=== PATIENT | male | born 1985 | race Two or more races ===

== ENCOUNTER 2021-11-06 21:29 | Emergency (ER) | payer OTHER, SELFPAY ==
[2021-11-06 21:56] VITALS: BP 137/83; PULSE 65; RESP 16; TEMP 36.7; O2SAT 98; BMI 26.5
[2021-11-07 02:32] VITALS: BP 151/92; PULSE 81; RESP 18; TEMP 36.8; O2SAT 97
== END 2021-11-07 02:58 | disposition left against medical advice (07) ==
PROVIDERS: Emergency Provider Emergency Medicine
DX: R42 Dizziness and giddiness (principal)
CPT/HCPCS: 99282; 99283

== ENCOUNTER 2022-02-08 22:10 | Emergency (ER) | payer OTHER, SELFPAY ==
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
[2022-02-08 22:15] VITALS: BP 115/79; PULSE 80; RESP 17; TEMP 36.2; O2SAT 98; BMI 27.1
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
[2022-02-08] MEDS: Ibuprofen 600 MG TABLET PO (23:45)
== END 2022-02-08 23:49 | disposition home or self-care (01) ==
PROVIDERS: Emergency Provider Internal Medicine
DX: S20.213A Contusion of bilateral front wall of thorax, initial encounter (principal); V43.52XA Car driver injured in collision with other type car in traffic accident, initial encounter; Y93.9 Activity, unspecified; Y92.410 Unspecified street and highway as the place of occurrence of the external cause; Y99.9 Unspecified external cause status
CPT/HCPCS: 71111; 99283; 99284

== ENCOUNTER 2023-01-10 18:50 | Emergency (ER) | payer OTHER, SELFPAY ==
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
[2023-01-10 20:26] VITALS: BP 118/81; PULSE 74; RESP 18; TEMP 36.6; O2SAT 100; BMI 26.8
--- NOTE | 2023-01-10 20:28 | ED_ITS ---
HPI - Chest Pain General Chief Complaint: Back Pain/Injury <SCOTT Saucedo - Last Filed: 01/10/23 20:32> Stated Complaint: L body pain/ numbness , sob- work inj <SCOTT Saucedo - Last Filed: 01/10/23 20:32> Time Seen by Provider: 01/11/23 00:34 <SCOTT Saucedo - Last Filed: 01/10/23 20:32> Source: patient <Alex Farrell MD - Last Filed: 01/11/23 01:01> Mode of arrival: ambulatory <Alex Farrell MD - Last Filed: 01/11/23 01:01> Limitations: no limitations <Alex Farrell MD - Last Filed: 01/11/23 01:01> History of Present Illness HPI narrative: 37-year-old male presents with left-sided chest pain. Patient fell a few days ago while caring furniture up a 4th floor walk-up. He did not have any additional injuries. Now he is complaining of left-sided chest wall pain. This has been going on for 3-4 days. The pain is moderate to severe. Worse with particular movements. The pain does not radiate. It can be associated with shortness of breath. It improves with rest. Patient denies any additional injuries. <Alex Farrell MD - Last Filed: 01/11/23 01:01> Related Data Home Medications: Previous Rx's Medication Instructions Recorded ibuprofen 600 mg tablet 600 mg PO Q6H PRN pain #20 tabs 02/08/22 meloxicam 15 mg tablet 15 mg PO DAILY #14 tabs 01/11/23 <SCOTT Saucedo - Last Filed: 01/10/23 20:32> Allergies/Adverse Reactions: Allergies Allergy/AdvReac Type Severity Reaction Status Date / Time No Known Allergies Allergy Verified 01/10/23 20:31 <SCOTT Saucedo - Last Filed: 01/10/23 20:32> [facility] Past Medical History Medical History: Medical History No known health problems <SCOTT Saucedo - Last Filed: 01/10/23 20:32> Social History Social History: Social History Advance Directives: No Advance Directives Information Provided: Yes <SCOTT Saucedo - Last Filed: 01/10/23 20:32> Physical Exam Vital Signs: Vital Signs: Last Vital Signs Temp 97.9 F 01/10/23 20:26 Pulse 74 01/10/23 20:26 Resp 18 01/10/23 20:26 BP 118/81 01/10/23 20:26 Pulse Ox 100 01/10/23 20:26 O2 Del Method Room Air 01/10/23 20:26 BMI result Body Mass Index 26.8 <SCOTT Saucedo - Last Filed: 01/10/23 20:32> Vital Signs: Last Vital Signs Temp 97.9 F 01/10/23 20:26 Pulse 74 01/10/23 20:26 Resp 18 01/10/23 20:26 BP 118/81 01/10/23 20:26 Pulse Ox 100 01/10/23 20:26 O2 Del Method Room Air 01/10/23 20:26 BMI result Body Mass Index 26.8 <Alex Farrell MD - Last Filed: 01/11/23 01:01> GEN: Well developed, no acute distress, alert, oriented HEENT: Normocephalic, atraumatic, normal external ears, nose appears normal, no oropharyngeal edema or exudates Eyes: Normal to appearance Neck: Supple, no lymphadenopathy Respiratory: Talks in complete sentences, no respiratory distress, clear to auscultation bilaterally Cardiovascular: Regular rate and rhythm, no murmurs rubs or gallops Abdomen: Soft, nontender, nondistended, no guarding, no rebound Back: No CVA tenderness Extremities: No clubbing cyanosis or edema Neurologic: No focal neurologic deficits, cranial nerves 2-12 intact, strength is 5/5 bilaterally, gait normal Skin: No rash Chest: Point tenderness on the left lateral anterior chest to palpation, no deformities <Alex Farrell MD - Last Filed: 01/11/23 01:01> Course Course Course Narrative: [place]--37yo M with no sig PMHX c/o L rib pain s/p dresser falling on him today. States was carrying dresser up the stairs with friends & felling backwards and dresser hit him on the left side. Reports pain worse with movement and breathing. Denies head trauma or LOC. Mild left anterior lateral rib tenderness noted. No flail chest, ecchymosis edema abdomen soft nontender Rib x-rays ordered <SCOTT Saucedo - Last Filed: 01/10/23 20:32> Reevaluation(s) Reevaluation #1: Chest x-ray does not reveal any acute cardiopulmonary disease. No definite fracture. Patient will be treated for pain and follow up as needed. <Alex Farrell MD - Last Filed: 01/11/23 01:01> Time: 01:00 <Alex Farrell MD - Last Filed: 01/11/23 01:01> Medical Decision Making Medical Decision Making MDM Narrative: 37-year-old male presents with left-sided chest wall pain. Examination was consistent with musculoskeletal pain following an injury or fall. Lungs are clear to auscultation bilaterally. X-ray revealed no acute cardiopulmonary disease. Patient most likely has rib contusion <Alex Farrell MD - Last Filed: 01/11/23 01:01> Differential Diagnosis Differential Diagnoses: The differential diagnosis associated with the presentation includes (Fracture, contusion, pulmonary contusion, chest wall pain) <Alex Farrell MD - Last Filed: 01/11/23 01:01> Rib contusion <Alex aFrrell MD - Last Filed: 01/11/23 01:01> Independent Interpretation I performed an independent interpretation of an: Plain X-Ray (No acute cardiopulmonary disease) <Alex Farrell MD - Last Filed: 01/11/23 01:01> Radiology Impression Discussion of test interpretation with radiology: I have reviewed the radiologist's reading. ( XR/XR ribs LT min 3V w CXR1V IMPRESSION: Clear lungs. No focal rib abnormality identified. Dictated By:Alfredo Watson MDSigned By:<Electronically signed by Alfredo Watson MD in [place]>01/10/232104 DD/ 45TD/TT: Case Repairer: RON) <Alex Farrell MD - Last Filed: 01/11/23 01:01> Tests considered The following testing was considered but not selected: CT chest <Alex Farrell MD - Last Filed: 01/11/23 01:01> Prescription Management I considered prescription management with: Pain Medication <Alex Farrell MD - Last Filed: 01/11/23 01:01> Discharge Plan Discharge Clinical Impression: Acute chest wall pain <SCOTT Saucedo - Last Filed: 01/10/23 20:32> Patient Disposition: Home, Self-Care <SCOTT Saucedo - Last Filed: 01/10/23 20:32> Instructions: Chest Wall Pain (ED) <SCOTT Saucedo - Last Filed: 01/10/23 20:32> Additional Instructions: For Pain: Meloxicam daily for pain for additional pain relief tylenol 1000 mg every 6 hours as needed <SCOTT Saucedo - Last Filed: 01/10/23 20:32> Prescriptions: New meloxicam 15 mg tablet 15 mg PO DAILY Qty: 14 0RF No Action ibuprofen 600 mg tablet 600 mg PO Q6H PRN (Reason: pain) Qty: 20 0RF <SCOTT Saucedo - Last Filed: 01/10/23 20:32> Referrals: Physician,Unknown J [Primary Care Provider] - <SCOTT Saucedo - Last Filed: 01/10/23 20:32>
[2023-01-11 01:03] VITALS: BP 126/87; PULSE 61; RESP 12; TEMP 36.7; O2SAT 98
[2023-01-11] MEDS: Acetaminophen 325 MG TABLET 975 MG PO (01:04)
[2023-01-11] MEDS: Ibuprofen 800 MG TABLET PO (01:04)
--- NOTE | 2023-01-11 01:08 | PC.NURSE ---
Pt aox4 resting at the bedside. Discharge instructions reviewed with pt. Pt verbalizes understanding.
== END 2023-01-11 01:09 | disposition home or self-care (01) ==
PROVIDERS: Emergency Provider Emergency Medicine
DX: M94.0 Chondrocostal junction syndrome [Tietze] (principal); R07.89 Other chest pain; M54.50 Low back pain, unspecified
CPT/HCPCS: 71101; 99283; 99284

== ENCOUNTER 2023-09-26 21:18 | Emergency (ER) | payer OTHER, SELFPAY ==
--- NOTE | 2023-09-26 | ECG_ITS ---
Test Reason : CHEST PAIN Blood Pressure : / mmHG Vent. Rate : 092 BPM Atrial Rate : 092 BPM P-R Int : 132 ms QRS Dur : 092 ms QT Int : 358 ms P-R-T Axes : 050 037 022 degrees QTc Int : 442 ms Normal sinus rhythm Normal ECG No previous ECGs available Referred By: Generic ED Physician Electronically Signed By:INES ALEGRE
--- NOTE | ~2023-09-26 | XR_ITS ---
EXAMINATION: XR RIBS, LEFT CLINICAL INFORMATION: Syncope. Pain. COMPARISON: 01/10/2023. TECHNIQUE: 2 views of the left ribs were obtained. FINDINGS: Lungs are clear. No consolidation, pneumothorax, or pleural effusion. The cardiomediastinal silhouette and pulmonary vasculature are normal. Osseous structures are unremarkable. Ribs are intact. No fractures are identified. XR/XR ribs LT min 3V w CXR1V IMPRESSION: Unremarkable examination.
--- NOTE | ~2023-09-26 | CT_ITS ---
EXAMINATION: CT ANGIOGRAM OF THE CHEST WITH AND WITHOUT CONTRAST (CT PULMONARY ANGIOGRAM FOR PE) CLINICAL INFORMATION: Reason for Exam syncope, Chest pain COMPARISON: None available. TECHNIQUE: Prior to contrast administration, noncontrast localization images were obtained. Subsequently, multidetector volumetric imaging was performed from the thoracic inlet to below the diaphragms following the administration of 65 mL Omnipaque 350 intravenous contrast. No contrast reaction reported Sagittal, coronal, and MIP oblique sagittal reformatted images were obtained on the CT workstation, uploaded to PACS, and reviewed. This CT examination was performed using dose optimization techniques as appropriate, variously including the following: *Automated exposure control *Adjustment of mA and/or kV according to patient size (this includes techniques or standardized protocols for targeted exams where dose is matched to indication/reason for exam; i.e. extremities or head) *Use of iterative reconstruction technique Total exam dose-length product: 407 mGy-cm FINDINGS: QUALITY OF STUDY/CONTRAST BOLUS: Satisfactory. PULMONARY ARTERIES: No pulmonary emboli. THORACIC AORTA: No aneurysm. LUNG: No focal consolidation, nodules or masses. PLEURA: No pleural effusion or pneumothorax. MEDIASTINUM: Normal heart size. No pericardial effusion. No hilar or mediastinal lymphadenopathy. No evidence of septal bowing or right heart strain. CORONARY ARTERY CALCIFICATION: None visualized on this study. CHEST WALL/AXILLA: No axillary or internal mammary lymphadenopathy. OSSEOUS STRUCTURES: No acute or suspicious osseous abnormality. UPPER ABDOMEN: Unremarkable. No reflux of contrast into the hepatic veins to suggest elevated right heart pressures. CT/CT angio chest PE protocol IMPRESSION: No evidence for pulmonary embolism. No active cardiopulmonary disease. VTE: Negative for pulmonary embolism.
[2023-09-26 21:28] VITALS: BP 146/93; PULSE 96; RESP 18; TEMP 36.3; O2SAT 96; BMI 27.3
[2023-09-26 21:47] LABS: MANUAL DIFF FLAG NO
[2023-09-26 21:50] LABS: Basophils Percent Auto 0.3 % (0-2); Eosinophils Absolute Auto 0.1 X10*3/uL (0.0-0.4); Eosinophils Percent Auto 1.3 % (0-4); Hematocrit 45.6 % (42.0-52.0); Hemoglobin 15.2 g/dl (14.0-18.0); Imm Gran Abs Auto 0.02 X10*3/uL (0.00-0.03); Imm Gran Pct Auto 0.3 % (0.0-0.4); Lymphocytes Percent Auto 25.5 % (20-40); Mean Corpuscular HGB Conc 33.3 g/dl (31.0-36.0); Mean Corpuscular Hemoglobin 29.4 pg (27.0-33.0); Mean Corpuscular Volume 88.2 fL (80.0-98.0); Mean Platelet Volume 10.9 fL (9.4-12.4); Monocytes Absolute Auto 0.5 X10*3/uL (0.1-1.2); Monocytes Percent Auto 6.2 % (2-11); Neutrophils Absolute Auto 5.2 x10*3/uL (2.0-8.3); Neutrophils Percent Auto 66.4 % (45-73); Platelet Count 238 X10*3/uL (160-400); Red Blood Count 5.17 X10*6/uL (4.60-5.80); Red Cell Distribution Width 13.2 % (11.0-16.0); White Blood Count 7.9 X10*3/uL (4.8-10.8)
[2023-09-26 22:03] LABS: Alanine Aminotransferase 74 U/L (0-40); Albumin Level 4.2 g/dL (3.5-5.0); Alkaline Phosphatase 72 U/L (39-117); Anion Gap 12 (12-20); Aspartate Amino Transferase 34 U/L (5-37); Bilirubin Total 0.6 mg/dL (0.0-1.0); Blood Urea Nitrogen 21 mg/dL (9-16); Calcium 9.1 mg/dL (8.4-10.2); Carbon Dioxide 21 mmol/L (22-29); Chloride 112 mmol/L (96-108); Creatinine Clr Calc Pharmacy 119.3; Estimated Glomerular Filt Rate > 60; Glucose Random 105 mg/dL (60-115); Lipase 16 U/L (8-78); Potassium 3.7 mmol/L (3.3-5.1); Sodium 141 mmol/L (135-145); Total Protein 6.9 g/dL (6.5-8.0)
--- OUTSIDE RECORDS SUMMARY | 2023-09-26 23:33 | XMS_ITS | Continuity of Care Document ---
Author Name Unknown Organization [facility] ter Address [address] [place] [id number]- Care Team Providers Care Purchasing Administrator Name Role Phone Cross Jud DICKEY Primary Care Physician Unavaila ble [place] [facility] [place] 06/03/[place] - 06/04/[address] [address]- Discharge Disposition: A-D/C Walkout Attending Physician: Not on Staff, Attending MD Admitting Physician: Not on Staff, Admitting MD Referring Physician: Not on Staff, Referring MD Allergies, Adverse Reactions, Alerts No Known Allergies Medications ibuprofen 600 mg oral tablet 1 tablet = 600 mg, By Mouth, 4 times a day, PRN Pain, # 40 tablet, 0 Refills, Maintenance, Tablet Start Date: 06/19/12 Status: Ordered ibuprofen 600 mg oral tablet 600 mg, 1, tablet, By Mouth, Every 6 hours, # 30 tablet, Refills 0, Tot. Refills 0, Maintenance, 11/09/17 22:29:26, Print Requisition Start Date: 11/09/17 Status: Ordered Motrin 800 mg oral tablet 1 tablet, By Mouth, 3 times a day, PRN Pain, # 30 tablet, 0 Refills Start Date: 05/27/09 Stop Date: 06/10/09 Status: Ordered penicillin V potassium 500 mg oral tablet 1 tablet = 500 mg, By Mouth, Every 8 hours, # 30 tablet, 0 Refills, Maintenance, 11/09/17 22:29:23 Start Date: 11/09/17 Stop Date: 11/19/17 Status: Ordered Tylox 500 mg-5 mg oral capsule 1 capsule, By Mouth, Every 4 hours, PRN Pain, # 12 tablet, 0 Refills Start Date: 05/27/09 Stop Date: 06/03/09 Status: Ordered Ultram 50 mg oral tablet 1 tablet = 50 mg, By Mouth, Every 4 hours, PRN for pain, # 7 tablet, 0 Refills, Maintenance, 11/09/17 22:29:20, Tablet Start Date: 11/09/17 Status: Ordered Zithromax 500 mg oral tablet 2 tablet = 1,000 mg, By Mouth, Once, # 2 tablet, 0 Refills, Soft Stop, 07/31/17 15:30:45, Tablet Start Date: 07/31/17 Status: Ordered Results Orders for Microbiology Reports Name Date Urine Culture (URINE CULTURE) 06/03/22 Microbiology Reports TEST:Urine Culture STATUS:Auth (Verified) BODY SITE: SOURCE:URINE COLLECTED DATE/TIME:06/03/22 3:38 PM Urine Culture SPECIMEN DESCRIPTION : URINE CLEAN CATCH/MIDSTREAM SPECIAL REQUESTS : NONE Reflexed from [id number] CULTURE : NO GROWTH REPORT STATUS : FINAL 06/04/2022 Vital Signs Most recent to oldest [Reference Range]: 1 2 3 Weight 88.6 kg (06/03/22 3:20 PM) Oxygen Saturation [94-100 %] 100 % (06/04/22 1:22 AM) 100 % (06/03/22 11:02 PM) 100 % (06/03/22 8:25 PM) Pulse Rate [55-90 bpm] 77 bpm (06/04/22 1:22 AM) 62 bpm (06/03/22 11:02 PM) 82 bpm (06/03/22 8:25 PM) Blood Pressure [90-138/55-84 mm Hg] 112/68mm Hg (06/04/22 1:22 AM) 112/70mm Hg (06/03/22 11:02 PM) 122/75mm Hg (06/03/22 8:25 PM) Respiratory Rate [16-30 br/min] 18 br/min (06/03/22 6:09 PM) 18 br/min (06/03/22 4:49 PM) 18 br/min (06/03/22 2:25 PM) Temperature [96.8-100.4 DegF] 97.0 DegF (06/04/22 1:22 AM) 97.2 DegF (06/03/22 11:02 PM) 98.8 DegF (06/03/22 8:25 PM) Mode of Delivery (Oxygen) Room air (06/04/22 1:22 AM) Room air (06/03/22 11:02 PM) Room air (06/03/22 8:25 PM) Blood pressure sites Arm, right (06/04/22 1:22 AM) Arm, right (06/03/22 11:02 PM) Arm, right (06/03/22 8:25 PM) Temperature Route Temporal (06/04/22 1:22 AM) Temporal (06/03/22 11:02 PM) Oral (06/03/22 8:25 PM) Weight Obtained Via Patient/family state d (06/03/22 3:20 PM)
[2023-09-26 23:38] VITALS: BP 115/79; PULSE 82; RESP 17; TEMP 36.6; O2SAT 96
--- NOTE | 2023-09-26 23:47 | ED.GENADULT ---
HPI - General Adult General Chief complaint: Abdominal Pain Stated complaint: chest pain Time Seen by Provider: 09/26/23 23:42 Source: patient Mode of arrival: ambulatory Limitations: no limitations History of Present Illness HPI narrative: Patient comes in the emergency room complaining left-sided chest pain. Patient states that when he moves certain ways, he feels a pulling sensation on the lateral aspect of the chest patient states that about a year ago he fell and hit the left side of his chest with a chair, he does not know if he had any fractured ribs. Patient states that since then, occasionally every time that he moves certain ways, he has the same pain that he experienced today. Patient states it is achy, reproducible by putting pressure on the chest. Patient denies any URI, no vomiting or diarrhea Related Data Previous Rx's Medication Instructions Recorded ibuprofen 600 mg tablet 600 mg PO Q6H PRN pain #20 tabs 02/08/22 meloxicam 15 mg tablet 15 mg PO DAILY #14 tabs 01/11/23 Allergies Allergy/AdvReac Type Severity Reaction Status Date / Time No Known Allergies Allergy Verified 09/26/23 21:28 Review of Systems Review of Systems: Constitutional : No Weight loss, No Fever, No Chills, No Night Sweats, No Fatigue, No Malaise ENT/Mouth : No Hearing loss, No Ear Pain, No Nasal Congestion, No Sinus Pain, No Hoarseness, No sore throat, No Rhinorrhea, No Swallowing Difficulty Eyes: No Eye Pain, No Swelling, No Redness, No Foreign Body, No Discharge, No Vision Changes Cardiovascular : Complaining of left-sided chest pain, No SOB, No Dyspnea on Exertion, No Orthopnea, No Edema, No Palpitations Respiratory : No Cough, No Sputum, No Wheezing, No Smoke Exposure, No Dyspnea Gastrointestinal : No Nausea, No Vomiting, No Diarrhea, No Constipation, No abdominal Pain, No Hematochezia, No Melena Genitourinary : no irregular bleeding, No Dysuria, No Urinary Frequency, No Hematuria, No Urinary Incontinence, No Urgency, No Flank Pain, No Urinary Flow Changes, No Hesitancy Musculoskeletal : No joint pain, No Myalgias, No Joint Swelling Skin : No Skin Lesions, No rash Neuro : No Weakness, No Numbness, No Paresthesias, No Loss of Consciousness, No Dizziness, No Headache Psych : No Anxiety/Panic, No Depression, No SI/HI/AH/VH, No Social Issues, Heme/Lymph: No Bruising, No Bleeding,No Lymphadenopathy Endocrine : No Polyuria, No Polydipsia, No Temperature Intolerance [facility] Past Medical History Medical History No known health problems Social History Social History Smoked in Last 30 Days: No Use of substances other than those prescribed or required for medical reasons: No Advance Directives: No Advance Directives Information Provided: Yes Physical Exam ED Vital Signs: Vital Signs - 24 hr 09/26/23 21:28 09/26/23 23:38 09/27/23 00:53 Temperature 97.4 F 97.8 F Pulse Rate 96 82 79 Respiratory Rate 18 17 Blood Pressure 146/93 H 115/79 115/71 Pulse Oximetry 96 96 Oxygen Delivery Method Room Air 09/27/23 00:54 09/27/23 00:55 09/27/23 01:10 Temperature Pulse Rate 76 80 83 Respiratory Rate 21 H Blood Pressure 120/79 114/79 109/79 Pulse Oximetry 97 Oxygen Delivery Method Room Air 09/27/23 03:41 Temperature 98.2 F Pulse Rate 75 Respiratory Rate 17 Blood Pressure 121/78 Pulse Oximetry 97 Oxygen Delivery Method Room Air BMI result Body Mass Index 27.3 Const Other: Appearance: Alert. Oriented X3. No acute distress. Eyes: Pupils equal, round and reactive to light. ENT: Pharynx normal. Neck: Normal inspection. Neck supple. No lymph nodes noted. No crepitus CVS: Normal heart rate and rhythm. Pulses normal. Normal S1 and S2. Reproducible chest pain to palpation on the left side of the chest and on the ribs on the left side. Respiratory: No respiratory distress. Breath sounds normal. No Wheezing. No rales Abdomen: Soft and nontender. No rigidity. No distention. Skin: Skin warm and dry. Normal skin color. Normal skin turgor. Extremities: No lower extremity edema. No Lacerations. No Rash Neuro: Oriented X 3. No motor deficit. No sensory deficit. Moving all extremities. No slurred speech. CN 2 through 12 grossly intact Psych: calm, cooperative, normal affect Course Course Course Narrative: Chest x-ray and rib x-ray pending Medications Administered Discontinued Medications Generic Name Dose Route Start Last Admin Trade Name Tristan PRN Reason Stop Dose Admin Iohexol 65 ml 09/27/23 01:55 09/27/23 01:56 Iohexol 350 Mg/Ml 100 Ml Infus..Btl IV 09/27/23 01:56 65 ml ONCE ONE Administration Medical Decision Making Medical Decision Making [facility] Narrative: -given the patient's history, sounds more like musculoskeletal kind of pain. However, when patient was in x-rays, patient had a witnessed syncopal episode. -D-dimer is negative, CTA is negative. Orthostatic vitals are negative -my interpretation of EKG: Normal sinus rhythm, heart rate 92, no ST segment depression or elevation, no T-wave inversion, QTC 442 -I discussed the patient with Dr. Keating, given the patient's history of chest pain and witnessed syncope -Dr. Keating spoke with the patient, who recommends to discharge the patient home. Also, patient wants to go home. Differential Diagnosis Differential Diagnoses: The differential diagnosis associated with the presentation includes (ACS, arrhythmia, pulmonary embolism) Admission/Observation Consideration of admission/observation: Escalation of care including admission/observation considered Consult Healthcare Provider Management of the patient was discussed with: Hospitalist Lab Data [facility] Lab Attestation statement: I reviewed the patient's lab results. 09/26/23 21:43 09/26/23 21:43 Labs: Lab Results 09/26/23 09/27/23 09/27/23 Range/Units 21:43 01:09 02:44 WBC 7.9 (4.8-10.8) X10*3/uL RBC 5.17 (4.60-5.80) X10*6/uL Hgb 15.2 (14.0-18.0) g/dl Hct 45.6 (42.0-52.0) % MCV 88.2 (80.0-98.0) fL MCH 29.4 (27.0-33.0) pg MCHC 33.3 (31.0-36.0) g/dl RDW 13.2 (11.0-16.0) % Plt Count 238 (160-400) X10*3/uL MPV 10.9 (9.4-12.4) fL Immature Gran % (Auto) 0.3 (0.0-0.4) % Neut % (Auto) 66.4 (45-73) % Lymph % (Auto) 25.5 (20-40) % [place] % (Auto) 6.2 (2-11) % Eos % (Auto) 1.3 (0-4) % Baso % (Auto) 0.3 (0-2) % Lymph # (Auto) 2.0 (1.2-4.9) X10*3/uL [place] # (Auto) 0.5 (0.1-1.2) X10*3/uL Eos # (Auto) 0.1 (0.0-0.4) X10*3/uL Baso # (Auto) 0.0 (0.0-0.2) X10*3/uL Abs Immat Gran (auto) 0.02 (0.00-0.03) X10*3/uL Absolute Neuts (auto) 5.2 (2.0-8.3) x10*3/uL Absolute Nucleated RBC 0.000 (0.0-0.012) X10*3/uL Nucleated RBC % (auto) 0.0 (0.0-0.2) /100WBC D-Dimer High Sensitivty < 150 NG/ML Sodium 141 (135-145) mmol/L Potassium 3.7 (3.3-5.1) mmol/L Chloride 112 H (96-108) mmol/L Carbon Dioxide 21 L (22-29) mmol/L Anion Gap 12 (12-20) BUN 21 H (9-16) mg/dL Creatinine 0.93 (0.5-1.4) mg/dL Estim Creat Clear Calc 119.3 Estimated GFR > 60 Random Glucose 105 (60-115) mg/dL Calcium 9.1 (8.4-10.2) mg/dL Total Bilirubin 0.6 (0.0-1.0) mg/dL AST 34 (5-37) U/L ALT 74 H (0-40) U/L Alkaline Phosphatase 72 (39-117) U/L Troponin I High Sens 4.0 5.1 (<3.5-35.0) ng/L Total Protein 6.9 (6.5-8.0) g/dL Albumin 4.2 (3.5-5.0) g/dL Lipase 16 (8-78) U/L Urine Opiates Screen Not Detected (Not Detect) Urine Fentanyl Screen Not Detected (Not Detect) Ur Barbiturates Screen Not Detected (Not Detect) Ur Phencyclidine Scrn Not Detected (Not Detect) Ur Amphetamines Screen Not Detected (Not Detect) U Benzodiazepines Scrn Not Detected (Not Detect) Urine Cocaine Screen Not Detected (Not Detect) U Marijuana (THC) Screen Not Detected (Not Detect) Ethyl Alcohol < 10 mg/dL Critical Care Time Critical Care Time Critical Care Time: Yes Total Critical Care Time: 75 Attestation: I have personally provided critical care time. Time includes review of lab data, radiology results, discussion with consultants, and monitoring for potential decompensation. Intervention performed as documented. Discharge Plan Discharge Clinical Impression: Chest pain, Syncope Patient Disposition: Home, Self-Care Instructions: Syncope (ED), Chest Pain (ED) Additional Instructions: Please follow-up with your primary care physician tomorrow. If you have any worsening or new symptoms, please return to the emergency room or call 911 Prescriptions: No Action ibuprofen 600 mg tablet 600 mg PO Q6H PRN (Reason: pain) Qty: 20 0RF meloxicam 15 mg tablet 15 mg PO DAILY Qty: 14 0RF
[2023-09-27 00:53] VITALS: BP 115/71; PULSE 79
[2023-09-27 00:54] VITALS: BP 120/79; PULSE 76
[2023-09-27 00:55] VITALS: BP 114/79; PULSE 80
--- NOTE | 2023-09-27 00:56 | PC.NURSE ---
pt went to xray for image of ribs, XR tech called out for help. pt had collapsed while standing for image. LOC, head strike. pt awake and alert at this time. stated he felt dizzy then doesn't remember. pt very pale, skin warn and dry. provider alerted. pt back in room, orthos done.
[2023-09-27 01:10] VITALS: BP 109/79; PULSE 83; RESP 21; O2SAT 97
[2023-09-27 01:23] LABS: D Dimer High Sensitivity < 150 NG/ML
[2023-09-27 01:34] LABS: Ethanol < 10 mg/dL
[2023-09-27 01:35] LABS: Troponin-I High Sensitivity 5.1 ng/L (<3.5-35.0)
[2023-09-27] MEDS: iohexoL 350 MG/ML 100 ML INFUS..BTL 65 ML IV (01:56)
[2023-09-27 02:57] LABS: Amphetamine Screen Urine Not Detected (Not Detect); Barbiturates, Urine Not Detected (Not Detect); Benzodiazepines Screen Urine Not Detected (Not Detect); Cannabinoid Screen Urine Not Detected (Not Detect); Cocaine Screen Urine Not Detected (Not Detect); Fentanyl, urine Not Detected (Not Detect); Opiate Screen Urine Not Detected (Not Detect); Phencyclidine Screen Urine Not Detected (Not Detect)
[2023-09-27 03:41] VITALS: BP 121/78; PULSE 75; RESP 17; TEMP 36.8; O2SAT 97
== END 2023-09-27 04:06 | disposition home or self-care (01) ==
PROVIDERS: Emergency Provider Emergency Medicine
DX: R07.89 Other chest pain (principal); R55 Syncope and collapse; R07.81 Pleurodynia; Z11.52 Encounter for screening for COVID-19; Z20.822 Contact with and (suspected) exposure to COVID-19; Z79.899 Other long term (current) drug therapy
CPT/HCPCS: 36415; 71101; 71275; 80053; 80307; 83690; 84484; 85025; 85379; 93005; 99284; 99285; Q9967

== ENCOUNTER → 2023-09-26 21:26 | Outpatient (BNV) | payer OTHER, SELFPAY | PROVIDERS: Emergency Provider Emergency Medicine; Visit Provider Internal Medicine | DX: R07.9 Chest pain, unspecified (principal) | CPT/HCPCS: 93010 ==

== ENCOUNTER 2023-11-28 19:35 | Emergency (ER) | payer OTHER, SELFPAY ==
[2023-11-28 19:56] VITALS: BP 140/81; PULSE 101; RESP 18; TEMP 37.6; O2SAT 98; BMI 27.3
--- NOTE | 2023-11-28 19:56 | ED.GENADULT ---
[facility] - General Adult General Chief complaint: Abdominal Pain Stated complaint: abd pain and vomiting Time Seen by Provider: 11/28/23 23:14 Source: patient Mode of arrival: ambulatory History of Present Illness HPI narrative: 38M has several episodes of nausea and vomiting throughout the day but denies any diarrhea, abdominal pain, fevers, chills and states that after he received Zofran in the waiting area he has had no further episodes in his been tolerating oral intake Related Data Previous Rx's Medication Instructions Recorded ibuprofen 600 mg tablet 600 mg PO Q6H PRN pain #20 tabs 02/08/22 meloxicam 15 mg tablet 15 mg PO DAILY #14 tabs 01/11/23 ondansetron 4 mg disintegrating 4 mg PO Q8H PRN nausea and 11/29/23 tablet vomiting 4 days #7 tabs Allergies Allergy/AdvReac Type Severity Reaction Status Date / Time No Known Allergies Allergy Verified 11/28/23 19:56 Review of Systems Review of Systems: Pertinent positives and negatives as stated in [facility] Past Medical History Source: nursing notes reviewed Medical History No known health problems Social History Social History Advance Directives: No Advance Directives Information Provided: No Physical Exam ED Vital Signs: Vital Signs - 24 hr 11/28/23 19:56 11/28/23 23:25 Temperature 99.7 F 98.1 F Pulse Rate 101 H 99 Respiratory Rate 18 17 Blood Pressure 140/81 H 115/75 Pulse Oximetry 98 96 Oxygen Delivery Method Room Air Room Air BMI result Body Mass Index 27.3 VITAL SIGNS: Reviewed. GENERAL: Well developed, well nourished, in no acute distress. HEAD: Normocephalic/atraumatic EYES: PERRLA, EOMI EARS: Ext canals without abnormality, TMs non-bulging and non-erythematous NOSE: Nares patent bilateral OROPHARYNX: no oral lesions noted, posterior pharynx clear and non-erythematous without noted tonsillar enlargement/erythema/exudates NECK: Supple, no adenopathy LUNGS: Normal breath sounds. No adventitious sounds or accessory muscle use. SpO2<96> CARDIOVASCULAR: Regular rate and rhythm without noted murmurs ABDOMEN: Soft, non-tender, non-distended with bowel sounds. MUSCULOSKELETAL: No tenderness, deformities, or effusions noted on gross inspection. EXTREMITIES: No cyanosis, clubbing or edema. SKIN: Inspection of the skin reveals no rashes NEUROLOGIC: Alert and oriented x 4. Strength and sensation to light touch were grossly intact x 4. Course Course Course Narrative: This is an RME: Additional HPI, ROS, PE not included below will be deferred to primary provider. Patient is a 38-year-old male with ABD pain Symptom onset this afternoon after eating work, severe epigastric pain, unable to tolerate oral intake, reports multiple episodes of vomiting each hour since, fatigued Medications Administered Discontinued Medications Generic Name Dose Route Start Last Admin Trade Name Freq PRN Reason Stop Dose Admin Ondansetron HCl 4 mg 11/28/23 20:00 11/28/23 20:01 Ondansetron Odt 4 Mg Tab.Rapdis TRANSLINGU 11/28/23 20:01 4 mg ONCE ONE Administration Ondansetron HCl 4 mg 11/28/23 20:08 11/28/23 20:49 Ondansetron Odt 4 Mg Tab.Rapdis TRANSLINGU 11/28/23 20:09 Not Given ONCE ONE Medical Decision Making Medical Decision Making [facility] Narrative: 38-year-old male with history and clinical presentation, DDX: Food poisoning, gastroenteritis, viral illness, benign abdominal exam on patient is now tolerating oral liquids. I reviewed all investigations and hematologic indices demonstrates a non infectious leukocytosis and suspect reactive, no anemia or thrombocytopenia. Patient is afebrile and there is a benign abdominal exam. Chemistry indices do not demonstrate STAR and there is no electrolyte derangements. Viral testing is negative for COVID-19/influenza. On re-evaluation, patient continues to feel well and repeat abdominal exam is benign and patient is otherwise discharged home. Differential Diagnosis Differential Diagnoses: The differential diagnosis associated with the presentation includes Please see the discussion above Admission/Observation Consideration of admission/observation: Escalation of care including admission/observation considered Please see the discussion above Lab Data [facility] Lab Attestation statement: I reviewed the patient's lab results. Please see the discussion above 11/28/23 21:01 11/28/23 21:01 Labs: Lab Results 11/28/23 11/29/23 Range/Units 21:01 00:04 WBC 12.4 H (4.8-10.8) X10*3/uL RBC 5.50 (4.60-5.80) X10*6/uL Hgb 16.4 (14.0-18.0) g/dl Hct 48.3 (42.0-52.0) % MCV 87.8 (80.0-98.0) fL MCH 29.8 (27.0-33.0) pg MCHC 34.0 (31.0-36.0) g/dl RDW 13.1 (11.0-16.0) % Plt Count 230 (160-400) X10*3/uL MPV 11.0 (9.4-12.4) fL Immature Gran % (Auto) 0.4 (0.0-0.4) % Neut % (Auto) 94.4 H (45-73) % Lymph % (Auto) 2.5 L (20-40) % [place] % (Auto) 2.4 (2-11) % Eos % (Auto) 0.1 (0-4) % Baso % (Auto) 0.2 (0-2) % Lymph # (Auto) 0.3 L (1.2-4.9) X10*3/uL [place] # (Auto) 0.3 (0.1-1.2) X10*3/uL Eos # (Auto) 0.0 (0.0-0.4) X10*3/uL Baso # (Auto) 0.0 (0.0-0.2) X10*3/uL Abs Immat Gran (auto) 0.05 H (0.00-0.03) X10*3/uL Absolute Neuts (auto) 11.7 H (2.0-8.3) x10*3/uL Absolute Nucleated RBC 0.000 (0.0-0.012) X10*3/uL Nucleated RBC % (auto) 0.0 (0.0-0.2) /100WBC Smear Tech's Comments VERIFIED Sodium 139 (135-145) mmol/L Potassium 4.1 (3.3-5.1) mmol/L Chloride 107 (96-108) mmol/L Carbon Dioxide 24 (22-29) mmol/L Anion Gap 12 (12-20) BUN 19 H (9-16) mg/dL Creatinine 1.01 (0.5-1.4) mg/dL Estim Creat Clear Calc 108.8 Estimated GFR > 60 Random Glucose 117 H (60-115) mg/dL Calcium 9.4 (8.4-10.2) mg/dL Total Bilirubin 0.9 (0.0-1.0) mg/dL AST 32 (5-37) U/L ALT 56 H (0-40) U/L Alkaline Phosphatase 69 (39-117) U/L Total Protein 7.3 (6.5-8.0) g/dL Albumin 4.4 (3.5-5.0) g/dL Lipase 11 (8-78) U/L COVID-19 (JOSE) Negative (Negative) COVID-19 Clin Com See Note Influenza Type A (SIL) Negative (Negative) Influenza Type B (SIL) Negative (Negative) Influenza A & B Note See Note External Record Review External record reviewed: Outpatient record, Prior outpatient labs and Prior outpatient radiology Critical Care Time Critical Care Time Critical Care Time: Yes Total Critical Care Time: 30 Attestation: I personally attest to this time spent taking care of the patient. Discharge Plan Discharge Clinical Impression: Gastroenteritis Patient Disposition: Home, Self-Care Instructions: Gastroenteritis (ED) Additional Instructions: 1. Please continue to drink plenty of water, I have provided a prescription to help control the nausea. 2. Please return to the emergency room if you develop any worsening or recurrence of symptoms, especially associated with fever or chills. Prescriptions: New ondansetron 4 mg tablet,disintegrating 4 mg PO Q8H PRN (Reason: nausea and vomiting) 4 Days Qty: 7 0RF No Action ibuprofen 600 mg tablet 600 mg PO Q6H PRN (Reason: pain) Qty: 20 0RF meloxicam 15 mg tablet 15 mg PO DAILY Qty: 14 0RF
[2023-11-28] MEDS: Ondansetron ODT 4 MG TAB.RAPDIS TRANSLINGU (20:01)
[2023-11-28 21:06] LABS: Basophils Percent Auto 0.2 % (0-2); Eosinophils Percent Auto 0.1 % (0-4); Hematocrit 48.3 % (42.0-52.0); Hemoglobin 16.4 g/dl (14.0-18.0); Imm Gran Abs Auto 0.05 X10*3/uL (0.00-0.03); Imm Gran Pct Auto 0.4 % (0.0-0.4); Lymphocytes Absolute Auto 0.3 X10*3/uL (1.2-4.9); Lymphocytes Percent Auto 2.5 % (20-40); MANUAL DIFF FLAG SCAN; Mean Corpuscular Hemoglobin 29.8 pg (27.0-33.0); Mean Corpuscular Volume 87.8 fL (80.0-98.0); Monocytes Absolute Auto 0.3 X10*3/uL (0.1-1.2); Monocytes Percent Auto 2.4 % (2-11); Neutrophils Absolute Auto 11.7 x10*3/uL (2.0-8.3); Neutrophils Percent Auto 94.4 % (45-73); Platelet Count 230 X10*3/uL (160-400); Red Cell Distribution Width 13.1 % (11.0-16.0); SCAN SMEAR FLAG 1; White Blood Count 12.4 X10*3/uL (4.8-10.8)
--- NOTE | 2023-11-28 21:10 | MHC.EDTECH ---
PATIENT BLOOD DRAWN AND SENT TO LAB .
[2023-11-28 21:22] LABS: SLIDE REVIEW VERIFIED
[2023-11-28 21:23] LABS: Alanine Aminotransferase 56 U/L (0-40); Albumin Level 4.4 g/dL (3.5-5.0); Alkaline Phosphatase 69 U/L (39-117); Anion Gap 12 (12-20); Aspartate Amino Transferase 32 U/L (5-37); Bilirubin Total 0.9 mg/dL (0.0-1.0); Blood Urea Nitrogen 19 mg/dL (9-16); Calcium 9.4 mg/dL (8.4-10.2); Carbon Dioxide 24 mmol/L (22-29); Chloride 107 mmol/L (96-108); Creatinine Clr Calc Pharmacy 108.8; Estimated Glomerular Filt Rate > 60; Glucose Random 117 mg/dL (60-115); Lipase 11 U/L (8-78); Potassium 4.1 mmol/L (3.3-5.1); Sodium 139 mmol/L (135-145); Total Protein 7.3 g/dL (6.5-8.0)
[2023-11-28 23:25] VITALS: BP 115/75; PULSE 99; RESP 17; TEMP 36.7; O2SAT 96
[2023-11-29 00:30] LABS: COVID-19 Test Negative (Negative); IDNOW Serial# 08D9AD1C; IDNOW Serial# 152EDE1D; Influenza A Negative (Negative); Influenza B2 Negative (Negative)
== END 2023-11-29 01:44 | disposition home or self-care (01) ==
PROVIDERS: Nurse Practitioner Family; Emergency Provider Student in an Organized Health Care Education/Training Program
DX: K52.9 Noninfective gastroenteritis and colitis, unspecified (principal); Z11.52 Encounter for screening for COVID-19
CPT/HCPCS: 36415; 80053; 83690; 85025; 87502; 87635; 99283; 99284

== ENCOUNTER 2024-06-23 18:56 | Emergency (ER) | payer OTHER, SELFPAY ==
--- NOTE | ~2024-06-23 | CT_ITS ---
CT HEAD WITHOUT IV CONTRAST CT CERVICAL SPINE WITHOUT IV CONTRAST CT MAXILLOFACIAL WITHOUT IV CONTRAST INDICATION: Orbital pain status post fall COMPARISON: None TECHNIQUE: Multidetector CT acquisitions of the head, maxillofacial region, and cervical spine were obtained without IV contrast. Multiplanar reformats were acquired and utilized for image interpretation. DLP: 797 mGy-cm FINDINGS: HEAD: There is no intracranial hemorrhage or extra-axial fluid collection. The ventricles are unremarkable without hydrocephalus. No midline shift or mass effect. Sandoval to white matter differentiation is diffusely maintained without evidence of an evolved acute territorial infarct. The basilar cisterns are preserved. Subcortical and periventricular white matter hypoattenuation is suggestive of [] small vessel ischemic disease. No soft tissue or osseous abnormality. The mastoid air cells and paranasal sinuses are well-aerated. MAXILLOFACIAL: The mandible, maxilla, pterygoid plates, nasal bones, zygomatic arches, paranasal sinus badillo, and bony orbits are intact. No acute osseous abnormality within the maxillofacial region. The paranasal sinuses and mastoid air cells and frontal minor maxillary mucosal disease. The globes and extra-ocular musculature is intact. No significant soft tissue findings. CERVICAL SPINE: There is anatomic alignment of the vertebral bodies and posterior elements. There is no acute fracture and there is no acute subluxation. The craniocervical and atlantoaxial articulations are normal. There is no prevertebral soft tissue swelling. No significant soft tissue abnormality within the neck. The visualized lung apices are clear. CT/CT cervical spine wo IV con IMPRESSION: 1. No acute intracranial abnormality. 2. No acute osseous abnormality within the cervical spine. 3. No acute osseous abnormality within the maxillofacial region. Electronically signed by: Rojelio Byrd MD 06/23/2024 09:06 PM EDT
--- NOTE | ~2024-06-23 | XR_ITS ---
EXAMINATION: XR chest 2V CLINICAL INFORMATION: CP COMPARISON: Chest radiograph 09/27/2023 TECHNIQUE: 2 views of the chest FINDINGS/ XR/XR chest 2V IMPRESSION: Clear lungs. No pneumothorax. No pleural effusion. Normal cardiomediastinal silhouette. Electronically signed by: Carmen Roth MD 06/23/2024 08:10 PM EDT
--- NOTE | ~2024-06-23 | CT_ITS ---
CT HEAD WITHOUT IV CONTRAST CT CERVICAL SPINE WITHOUT IV CONTRAST CT MAXILLOFACIAL WITHOUT IV CONTRAST INDICATION: Orbital pain status post fall COMPARISON: None TECHNIQUE: Multidetector CT acquisitions of the head, maxillofacial region, and cervical spine were obtained without IV contrast. Multiplanar reformats were acquired and utilized for image interpretation. DLP: 797 mGy-cm FINDINGS: HEAD: There is no intracranial hemorrhage or extra-axial fluid collection. The ventricles are unremarkable without hydrocephalus. No midline shift or mass effect. [place]oval to white matter differentiation is diffusely maintained without evidence of an evolved acute territorial infarct. The basilar cisterns are preserved. Subcortical and periventricular white matter hypoattenuation is suggestive of [] small vessel ischemic disease. No soft tissue or osseous abnormality. The mastoid air cells and paranasal sinuses are well-aerated. MAXILLOFACIAL: The mandible, maxilla, pterygoid plates, nasal bones, zygomatic arches, paranasal sinus badillo, and bony orbits are intact. No acute osseous abnormality within the maxillofacial region. The paranasal sinuses and mastoid air cells and frontal minor maxillary mucosal disease. The globes and extra-ocular musculature is intact. No significant soft tissue findings. CERVICAL SPINE: There is anatomic alignment of the vertebral bodies and posterior elements. There is no acute fracture and there is no acute subluxation. The craniocervical and atlantoaxial articulations are normal. There is no prevertebral soft tissue swelling. No significant soft tissue abnormality within the neck. The visualized lung apices are clear. CT/CT facial bones wo IV con IMPRESSION: 1. No acute intracranial abnormality. 2. No acute osseous abnormality within the cervical spine. 3. No acute osseous abnormality within the maxillofacial region. Electronically signed by: Rojelio Byrd MD 06/23/2024 09:06 PM EDT
--- NOTE | ~2024-06-23 | CT_ITS ---
CT HEAD WITHOUT IV CONTRAST CT CERVICAL SPINE WITHOUT IV CONTRAST CT MAXILLOFACIAL WITHOUT IV CONTRAST INDICATION: Orbital pain status post fall COMPARISON: None TECHNIQUE: Multidetector CT acquisitions of the head, maxillofacial region, and cervical spine were obtained without IV contrast. Multiplanar reformats were acquired and utilized for image interpretation. DLP: 797 mGy-cm FINDINGS: HEAD: There is no intracranial hemorrhage or extra-axial fluid collection. The ventricles are unremarkable without hydrocephalus. No midline shift or mass effect. Sandoval to white matter differentiation is diffusely maintained without evidence of an evolved acute territorial infarct. The basilar cisterns are preserved. Subcortical and periventricular white matter hypoattenuation is suggestive of [] small vessel ischemic disease. No soft tissue or osseous abnormality. The mastoid air cells and paranasal sinuses are well-aerated. MAXILLOFACIAL: The mandible, maxilla, pterygoid plates, nasal bones, zygomatic arches, paranasal sinus badillo, and bony orbits are intact. No acute osseous abnormality within the maxillofacial region. The paranasal sinuses and mastoid air cells and frontal minor maxillary mucosal disease. The globes and extra-ocular musculature is intact. No significant soft tissue findings. CERVICAL SPINE: There is anatomic alignment of the vertebral bodies and posterior elements. There is no acute fracture and there is no acute subluxation. The craniocervical and atlantoaxial articulations are normal. There is no prevertebral soft tissue swelling. No significant soft tissue abnormality within the neck. The visualized lung apices are clear. CT/CT head/brain wo IV con IMPRESSION: 1. No acute intracranial abnormality. 2. No acute osseous abnormality within the cervical spine. 3. No acute osseous abnormality within the maxillofacial region. Electronically signed by: Rojelio Bydr MD 06/23/2024 09:06 PM EDT
[2024-06-23 19:02] VITALS: BP 114/79; PULSE 76; RESP 20; TEMP 36.7; O2SAT 98; BMI 25.9
--- NOTE | 2024-06-23 19:05 | ED.GENADULT ---
HPI - General Adult General Chief complaint: Eye Problems Stated complaint: left eye inj Time Seen by Provider: 06/24/24 00:14 Source: patient and family (Significant other) Mode of arrival: ambulatory Limitations: no limitations History of Present Illness ED Provider: DR. Atkins HPI narrative: 38-year-old male who slipped on a wet floor yesterday and fell hitting left side of the face with LOC, patient has black and blue under his left eye, no loss of vision, no blurry vision, complaining of headache. Patient also is complaining of left-sided chest pain since yesterday. Related Data Previous Rx's ?Medication ?Instructions ?Recorded ibuprofen 600 mg tablet 600 mg PO Q6H PRN pain #20 tabs 02/08/22 meloxicam 15 mg tablet 15 mg PO DAILY #14 tabs 01/11/23 ondansetron 4 mg disintegrating 4 mg PO Q8H PRN nausea and 11/29/23 tablet vomiting 4 days #7 tabs Allergies Allergy/AdvReac Type Severity Reaction Status Date / Time No Known Allergies Allergy Verified 06/23/24 19:05 Review of Systems Review of Systems: All other systems are reviewed and are negative Constitutional: Reports as per HPI and Reports no additional constitutional complaints Eyes: Reports as per HPI and Reports no additional eye complaints Reports system reviewed and no additional complaints, except as documented Cardiovascular: Reports as per HPI and Reports no additional cardiovascular complaints Respiratory: Reports as per HPI and Reports no additional respiratory complaints Gastrointestinal: Reports as per HPI and Reports no additional gastrointestinal complaints Genitourinary: Reports no additional female genitourinary complaints Musculoskeletal: Reports no additional musculoskeletal complaints Skin/Breast: Reports system reviewed and no additional complaints, except as docu Psychiatric: Reports no additional psychiatric complaints Endocrine: Reports no additional endocrine complaints Hematologic/Lymphatic: Reports no additional hematologic/lymphatic complaints Allergic/Immunologic: Reports no additional allergic/immunologic complaints Reports system reviewed and no additional complaints, except as documented and Reports Abnormal speech present [facility] Past Medical History Medical History No known health problems Social History Social History Advance Directives: No Advance Directives Information Provided: No Physical Exam ED Vital Signs: Vital Signs - 24 hr 09/04/24 19:02 Temperature 98.1 F Pulse Rate 76 Respiratory Rate 20 Blood Pressure 114/79 Pulse Oximetry 98 Oxygen Delivery Method Room Air BMI result Body Mass Index 25.9 Vital signs have been reviewed and appear to be correct. Blood pressure elevated. Heart rate normal. Respiratory rate normal. Temperature normal. Oxygen saturation normal. Appearance: Alert. Oriented X3. No acute distress. Head: Normal external exam. Normocephalic. Atraumatic. No Andrews signs noted. No raccoon eyes noted Eyes: Infraorbital hematoma, slight tenderness, no step-off. ENT: TM's Normal. Pharynx normal. Uvula midline. Moist mucous membranes. No trismus noted. No drooling noted. No muffled voice noted. Neck: Normal inspection. Neck supple. FROM. No adenopathy. Thyroid Normal. No meningeal signs. No neck mass noted. CVS: Normal heart rate and rhythm. Heart sound normal. No murmurs noted. Pulses normal throughout. Respiratory: No respiratory distress. Painless inspiration. Breath sounds normal. No wheezes/rales/rhonchi noted. Chest nontender. No accessory muscle usage noted or decreased air movement noted. Abdomen: Soft and nontender. Bowel sounds normal in all 4 quadrants. No distention noted. No organomegaly noted. No visible injury noted. Back: No CVA tenderness. Full range of motion noted. Skin: Skin warm and dry. Normal skin color. Normal skin turgor. No rashes/lesions/lacerations noted. Extremities: No lower extremity edema. Extremities exhibit normal range of motion. Extremities nontender. Neuro: Oriented X 3. Cranial nerve exam: II-XII are grossly intact No motor deficit. No sensory deficit. Reflexes normal. Course Course Course Narrative: This is an RME: Additional HPI, ROS, PE not included below will be deferred to primary provider. RME assessment and note performed by: Linnette Brown PA-C This is a [id number]-male who presents to the ER with a complaint of left eye pain, headache, dizziness s/p fall which occurred yesterday. He states that yesterday he had an anxiety attack, and felt very short of breath, and he had a syncopal episode, fell and struck the left side of his face on the stairs. He states that he lost consciousness for approximately a minute. He reports that his left eye was swollen. He now is endorsing some headaches, chest pain, dizziness, denies any vision loss. He is alert and oriented x4. No neurologic deficits on examination. Plan: Labs, EKG, CT, chest x-ray Reevaluation(s) Reevaluation #1: History of anxiety with mechanical fall yesterday after slipped and fall. GCS of 15, normal neuro exam, head/C-spine CT are unremarkable. Unremarkable EKG and cardiac enzyme patient has been complaining of chest pain. Time: 00:31 Medical Decision Making Differential Diagnosis Differential Diagnoses: The differential diagnosis associated with the presentation includes (Orbital fracture, intracranial bleed, cervical spine injury, electrolyte derangement, ACS, pneumonia, pneumothorax, pleural effusion.) Admission/Observation Consideration of admission/observation: Escalation of care including admission/observation considered Lab Data MDM Lab Attestation statement: I reviewed the patient's lab results. 06/23/24 19:41 06/23/24 19:41 Labs: Lab Results 06/23/24 Range/Units 19:41 WBC 7.6 (4.8-10.8) X10*3/uL RBC 5.09 (4.60-5.80) X10*6/uL Hgb 15.3 (14.0-18.0) g/dl Hct 45.4 (42.0-52.0) % MCV 89.2 (80.0-98.0) fL MCH 30.1 (27.0-33.0) pg MCHC 33.7 (31.0-36.0) g/dl RDW 13.7 (11.0-16.0) % Plt Count 246 (160-400) X10*3/uL MPV 10.9 (9.4-12.4) fL Immature Gran % (Auto) 0.1 (0.0-0.4) % Neut % (Auto) 69.0 (45-73) % Lymph % (Auto) 24.4 (20-40) % [place] % (Auto) 4.2 (2-11) % Eos % (Auto) 1.8 (0-4) % Baso % (Auto) 0.5 (0-2) % Lymph # (Auto) 1.9 (1.2-4.9) X10*3/uL [place] # (Auto) 0.3 (0.1-1.2) X10*3/uL Eos # (Auto) 0.1 (0.0-0.4) X10*3/uL Baso # (Auto) 0.0 (0.0-0.2) X10*3/uL Abs Immat Gran (auto) 0.01 (0.00-0.03) X10*3/uL Absolute Neuts (auto) 5.2 (2.0-8.3) x10*3/uL Absolute Nucleated RBC 0.000 (0.0-0.012) X10*3/uL Nucleated RBC % (auto) 0.0 (0.0-0.2) /100WBC PT 12.5 (11.1-13.3) SEC INR 1.0 (0.9-1.1) Sodium 143 (135-145) mmol/L Potassium 4.0 (3.3-5.1) mmol/L Chloride 109 H (96-108) mmol/L Carbon Dioxide 27 (22-29) mmol/L Anion Gap 11 L (12-20) BUN 17 H (9-16) mg/dL Creatinine 1.01 (0.5-1.4) mg/dL Estim Creat Clear Calc 108.8 Estimated GFR > 60 Random Glucose 93 (60-115) mg/dL Calcium 9.7 (8.4-10.2) mg/dL Total Bilirubin 0.5 (0.0-1.0) mg/dL Direct Bilirubin 0.2 (0.0-0.5) mg/dL AST 17 (5-37) U/L ALT 22 (0-40) U/L Alkaline Phosphatase 72 (39-117) U/L Troponin I High Sens 3.0 (<3.5-35.0) ng/L Total Protein 6.8 (6.5-8.0) g/dL Albumin 4.4 (3.5-5.0) g/dL Independent Interpretation I performed an independent interpretation of an: EKG (Normal sinus rhythm at 67 beats per minutes, normal intervals, no ST-T changes, no change from previous EKG.), Plain X-Ray (Chest: No acute intrathoracic pathology.) and CT Scan (Head/cervical spine/facial CT:1. No acute intracranial abnormality. 2. No acute osseous abnormality within the cervical spine. 3. No acute osseous abnormality within the maxillofacial region. ) Radiology Impression Discussion of test interpretation with radiology: I have reviewed the radiologist's reading. Discharge Plan Discharge Clinical Impression: Facial contusion, Anxiety, Chest pain Patient Disposition: Home, Self-Care Instructions: Facial Contusion (ED) Prescriptions: No Action ibuprofen 600 mg tablet 600 mg PO Q6H PRN (Reason: pain) Qty: 20 0RF meloxicam 15 mg tablet 15 mg PO DAILY Qty: 14 0RF ondansetron 4 mg tablet,disintegrating 4 mg PO Q8H PRN (Reason: nausea and vomiting) 4 Days Qty: 7 0RF Stand Alone Forms: Work/School Release Print Language: Vietnamese
--- NOTE | 2024-06-23 19:06 | ECG_ITS ---
Test Reason : ANXIETY Blood Pressure : / mmHG Vent. Rate : 067 BPM Atrial Rate : 067 BPM P-R Int : 136 ms QRS Dur : 092 ms QT Int : 386 ms P-R-T Axes : 044 041 038 degrees QTc Int : 407 ms Normal sinus rhythm Normal ECG When compared with ECG of 26-SEP-2023 21:26, No significant change was found Referred By: Linnette Brown Electronically Signed By:ENOC CHEW
[2024-06-23 19:46] LABS: MANUAL DIFF FLAG NO
[2024-06-23 19:48] LABS: Basophils Percent Auto 0.5 % (0-2); Eosinophils Absolute Auto 0.1 X10*3/uL (0.0-0.4); Eosinophils Percent Auto 1.8 % (0-4); Hematocrit 45.4 % (42.0-52.0); Hemoglobin 15.3 g/dl (14.0-18.0); Imm Gran Abs Auto 0.01 X10*3/uL (0.00-0.03); Imm Gran Pct Auto 0.1 % (0.0-0.4); Lymphocytes Absolute Auto 1.9 X10*3/uL (1.2-4.9); Lymphocytes Percent Auto 24.4 % (20-40); Mean Corpuscular HGB Conc 33.7 g/dl (31.0-36.0); Mean Corpuscular Hemoglobin 30.1 pg (27.0-33.0); Mean Corpuscular Volume 89.2 fL (80.0-98.0); Mean Platelet Volume 10.9 fL (9.4-12.4); Monocytes Absolute Auto 0.3 X10*3/uL (0.1-1.2); Monocytes Percent Auto 4.2 % (2-11); Neutrophils Absolute Auto 5.2 x10*3/uL (2.0-8.3); Platelet Count 246 X10*3/uL (160-400); Red Blood Count 5.09 X10*6/uL (4.60-5.80); Red Cell Distribution Width 13.7 % (11.0-16.0); White Blood Count 7.6 X10*3/uL (4.8-10.8)
[2024-06-23 20:01] LABS: Alanine Aminotransferase 22 U/L (0-40); Albumin Level 4.4 g/dL (3.5-5.0); Alkaline Phosphatase 72 U/L (39-117); Anion Gap 11 (12-20); Aspartate Amino Transferase 17 U/L (5-37); Bilirubin Direct 0.2 mg/dL (0.0-0.5); Bilirubin Total 0.5 mg/dL (0.0-1.0); Blood Urea Nitrogen 17 mg/dL (9-16); Calcium 9.7 mg/dL (8.4-10.2); Carbon Dioxide 27 mmol/L (22-29); Chloride 109 mmol/L (96-108); Creatinine Clr Calc Pharmacy 108.8; Estimated Glomerular Filt Rate > 60; Glucose Random 93 mg/dL (60-115); Sodium 143 mmol/L (135-145); Total Protein 6.8 g/dL (6.5-8.0)
[2024-06-23 20:05] LABS: Prothrombin Time 12.5 SEC (11.1-13.3)
[2024-06-24 00:48] VITALS: BP 114/79; PULSE 76; RESP 20; TEMP 36.7; O2SAT 98
== END 2024-06-24 00:48 | disposition home or self-care (01) ==
PROVIDERS: Physician Assistant Medical; Emergency Provider Emergency Medicine
DX: S00.83XA Contusion of other part of head, initial encounter (principal); W01.0XXA Fall on same level from slipping, tripping and stumbling without subsequent striking against object, initial encounter; Y93.9 Activity, unspecified; Y92.9 Unspecified place or not applicable; Y99.9 Unspecified external cause status; R51.9 Headache, unspecified; R07.9 Chest pain, unspecified; F41.9 Anxiety disorder, unspecified; Z79.899 Other long term (current) drug therapy
CPT/HCPCS: 36415; 70450; 70486; 71046; 72125; 80048; 80076; 84484; 85025; 85610; 93005; 99283; 99284

== ENCOUNTER 2024-07-31 23:31 | Emergency (ER) | payer OTHER, SELFPAY ==
--- NOTE | 2024-07-31 | ECG_ITS ---
Test Reason : CHEST PAIN Blood Pressure : / mmHG Vent. Rate : 095 BPM Atrial Rate : 095 BPM P-R Int : 128 ms QRS Dur : 086 ms QT Int : 354 ms P-R-T Axes : 051 045 039 degrees QTc Int : 444 ms Normal sinus rhythm Cannot rule out Anterior infarct , age undetermined Abnormal ECG When compared with ECG of 23-JUN-2024 19:30, No significant change was found Referred By: Generic ED Physician Electronically Signed By:BRYANT ZARAGOZA MD
[2024-07-31 23:40] VITALS: BP 130/89; PULSE 107; RESP 16; TEMP 36.4; O2SAT 98; BMI 26.2
[2024-07-31 23:55] LABS: MANUAL DIFF FLAG NO
--- NOTE | 2024-07-31 23:55 | MHC.EDTECH ---
Patient ekg taken and was read by Provider ,blood drawn and sent to lab .
[2024-07-31 23:58] LABS: Basophils Absolute Auto 0.1 X10*3/uL (0.0-0.2); Basophils Percent Auto 0.6 % (0-2); Eosinophils Absolute Auto 0.2 X10*3/uL (0.0-0.4); Eosinophils Percent Auto 1.8 % (0-4); Hemoglobin 14.9 g/dl (14.0-18.0); Imm Gran Abs Auto 0.02 X10*3/uL (0.00-0.03); Imm Gran Pct Auto 0.2 % (0.0-0.4); Lymphocytes Absolute Auto 2.3 X10*3/uL (1.2-4.9); Lymphocytes Percent Auto 27.3 % (20-40); Mean Corpuscular HGB Conc 33.9 g/dl (31.0-36.0); Mean Corpuscular Hemoglobin 29.9 pg (27.0-33.0); Mean Corpuscular Volume 88.4 fL (80.0-98.0); Mean Platelet Volume 10.6 fL (9.4-12.4); Monocytes Absolute Auto 0.5 X10*3/uL (0.1-1.2); Monocytes Percent Auto 5.6 % (2-11); Neutrophils Absolute Auto 5.5 x10*3/uL (2.0-8.3); Neutrophils Percent Auto 64.5 % (45-73); Platelet Count 251 X10*3/uL (160-400); Red Blood Count 4.98 X10*6/uL (4.60-5.80); Red Cell Distribution Width 13.2 % (11.0-16.0); White Blood Count 8.5 X10*3/uL (4.8-10.8)
[2024-08-01 00:14] LABS: Alanine Aminotransferase 18 U/L (0-40); Albumin Level 4.2 g/dL (3.5-5.0); Alkaline Phosphatase 72 U/L (39-117); Anion Gap 12 (12-20); Aspartate Amino Transferase 18 U/L (5-37); Bilirubin Total 0.4 mg/dL (0.0-1.0); Blood Urea Nitrogen 19 mg/dL (9-16); Calcium 8.7 mg/dL (8.4-10.2); Carbon Dioxide 24 mmol/L (22-29); Chloride 110 mmol/L (96-108); Creatinine Clr Calc Pharmacy 96.4; Estimated Glomerular Filt Rate > 60; Glucose Random 121 mg/dL (60-115); Potassium 3.7 mmol/L (3.3-5.1); Sodium 142 mmol/L (135-145); Total Protein 6.5 g/dL (6.5-8.0)
[2024-08-01 00:23] LABS: Troponin-I High Sensitivity 3.9 ng/L (<3.5-35.0)
--- NOTE | 2024-08-01 01:41 | ED_ITS ---
HPI - Chest Pain General Chief Complaint: Chest Pain Stated Complaint: SOB/ pain on left side Time Seen by Provider: 08/01/24 01:10 Source: patient Mode of arrival: ambulatory Limitations: no limitations History of Present Illness ED Provider: marimar ALCOCER narrative: Patient no significant past medical history apparently was changing the tire noticed pain in the left side of the chest increases on palpation and movement no prior history of chest pain or cardiac history in the past Related Data Previous Rx's ?Medication ?Instructions ?Recorded ibuprofen 600 mg tablet 600 mg PO Q6H PRN pain #20 tabs 02/08/22 meloxicam 15 mg tablet 15 mg PO DAILY #14 tabs 01/11/23 ondansetron 4 mg disintegrating 4 mg PO Q8H PRN nausea and 11/29/23 tablet vomiting 4 days #7 tabs ibuprofen 600 mg tablet 600 mg PO Q6H PRN fever or pain 08/01/24 #30 tabs Allergies Allergy/AdvReac Type Severity Reaction Status Date / Time No Known Allergies Allergy Verified 07/31/24 23:42 Review of Systems 2 Review of Systems: Yes all other systems are reviewed and are negative PMFSH Past Medical History Medical History No known health problems Social History Social History Smoked in Last 30 Days: No Use of substances other than those prescribed or required for medical reasons: No Advance Directives: No Advance Directives Information Provided: Yes Physical Exam 2 Vital Signs: Vital Signs: Last Vital Signs Temp 98.0 F 08/01/24 02:09 Pulse 76 08/01/24 02:09 Resp 18 08/01/24 02:09 BP 110/71 08/01/24 02:09 Pulse Ox 97 08/01/24 02:09 O2 Del Method Room Air 08/01/24 02:09 BMI result Body Mass Index 26.2 Appearance: Alert. Oriented X3. No acute distress. Eyes: PERRLA, No Nystagmus ENT: Pharynx normal. Oral Mucosa moist Neck: Normal inspection. Neck supple. CVS: Normal heart rate and rhythm. Pulses normal. Left chest wall tenderness Respiratory: No respiratory distress. Equal air entry bilateral, no wheezing/rales/rhonchi Abdomen: Soft and nontender. Bowel sounds are present, no mass palpable, no CVA tenderness Skin: Skin warm and dry. Normal skin color. Normal skin turgor. Extremities: No lower extremity edema. No calf tenderness Neuro: Oriented X 3. No motor deficit. Medications Administered Discontinued Medications Generic Name Dose Route Start Last Admin Trade Name Freq PRN Reason Stop Dose Admin Ibuprofen 600 mg 08/01/24 01:42 08/01/24 02:03 Ibuprofen 600 Mg Tablet PO 08/01/24 01:43 600 mg ONCE ONE Administration Medical Decision Making Medical Decision Making [facility] Narrative: Patient with musculoskeletal left-sided chest pain reproducible EKG without any ischemic changes , cardiac enzymes negative heart score of 0 will discharge patient home advised to follow with PCP Differential Diagnosis Differential Diagnoses: The differential diagnosis associated with the presentation includes ACS/costochondritis/pneumonia/pneumothorax Lab Data [facility] Lab Attestation statement: I reviewed the patient's lab results. 07/31/24 23:52 07/31/24 23:52 Labs: Lab Results 07/31/24 Range/Units 23:52 WBC 8.5 (4.8-10.8) X10*3/uL RBC 4.98 (4.60-5.80) X10*6/uL Hgb 14.9 (14.0-18.0) g/dl Hct 44.0 (42.0-52.0) % MCV 88.4 (80.0-98.0) fL MCH 29.9 (27.0-33.0) pg MCHC 33.9 (31.0-36.0) g/dl RDW 13.2 (11.0-16.0) % Plt Count 251 (160-400) X10*3/uL MPV 10.6 (9.4-12.4) fL Immature Gran % (Auto) 0.2 (0.0-0.4) % Neut % (Auto) 64.5 (45-73) % Lymph % (Auto) 27.3 (20-40) % [place] % (Auto) 5.6 (2-11) % Eos % (Auto) 1.8 (0-4) % Baso % (Auto) 0.6 (0-2) % Lymph # (Auto) 2.3 (1.2-4.9) X10*3/uL [place] # (Auto) 0.5 (0.1-1.2) X10*3/uL Eos # (Auto) 0.2 (0.0-0.4) X10*3/uL Baso # (Auto) 0.1 (0.0-0.2) X10*3/uL Abs Immat Gran (auto) 0.02 (0.00-0.03) X10*3/uL Absolute Neuts (auto) 5.5 (2.0-8.3) x10*3/uL Absolute Nucleated RBC 0.000 (0.0-0.012) X10*3/uL Nucleated RBC % (auto) 0.0 (0.0-0.2) /100WBC Sodium 142 (135-145) mmol/L Potassium 3.7 (3.3-5.1) mmol/L Chloride 110 H (96-108) mmol/L Carbon Dioxide 24 (22-29) mmol/L Anion Gap 12 (12-20) BUN 19 H (9-16) mg/dL Creatinine 1.14 (0.5-1.4) mg/dL Estim Creat Clear Calc 96.4 Estimated GFR > 60 Random Glucose 121 H (60-115) mg/dL Calcium 8.7 D (8.4-10.2) mg/dL Total Bilirubin 0.4 (0.0-1.0) mg/dL AST 18 (5-37) U/L ALT 18 (0-40) U/L Alkaline Phosphatase 72 (39-117) U/L Troponin I High Sens 3.9 (<3.5-35.0) ng/L Total Protein 6.5 (6.5-8.0) g/dL Albumin 4.2 (3.5-5.0) g/dL Independent Interpretation I performed an independent interpretation of an: EKG Interpretation: Normal sinus rhythm heart rate 95 beats per minute normal interval normal axis no acute ST-T changes no acute ischemia Discharge Plan Discharge Clinical Impression: Strain of chest wall Patient Disposition: Home, Self-Care Instructions: Muscle Strain (DC) Additional Instructions: Take ibuprofen for pain Your left-sided chest pain is from muscular strain not from the heart , blood workup is normal Prescriptions: New ibuprofen 600 mg tablet 600 mg PO Q6H PRN (Reason: fever or pain) Qty: 30 0RF No Action ibuprofen 600 mg tablet 600 mg PO Q6H PRN (Reason: pain) Qty: 20 0RF meloxicam 15 mg tablet 15 mg PO DAILY Qty: 14 0RF ondansetron 4 mg tablet,disintegrating 4 mg PO Q8H PRN (Reason: nausea and vomiting) 4 Days Qty: 7 0RF Interventions: ED Discharge Assessment Last Done: 08/01/24 02:09 Discharge Date/Time: 08/01/24 02:10 Print Language: Iraqi
[2024-08-01 02:00] VITALS: BP 110/71; RESP 18; TEMP 36.7; O2SAT 97
[2024-08-01] MEDS: Ibuprofen 600 MG TABLET PO (02:03)
[2024-08-01 02:09] VITALS: BP 110/71; PULSE 76; RESP 18; TEMP 36.7; O2SAT 97
== END 2024-08-01 02:10 | disposition home or self-care (01) ==
PROVIDERS: Emergency Provider Internal Medicine
DX: S29.011A Strain of muscle and tendon of front wall of thorax, initial encounter (principal); R07.89 Other chest pain; R06.02 Shortness of breath; X58.XXXA Exposure to other specified factors, initial encounter; Y93.9 Activity, unspecified; Y92.9 Unspecified place or not applicable; Y99.8 Other external cause status
CPT/HCPCS: 36415; 80053; 84484; 85025; 93005; 99283; 99285

== ENCOUNTER → 2024-07-31 23:37 | Outpatient (BNV) | payer OTHER, SELFPAY | PROVIDERS: Emergency Provider Internal Medicine; Visit Provider Internal Medicine Cardiovascular Disease | DX: R07.9 Chest pain, unspecified (principal); R94.31 Abnormal electrocardiogram [ECG] [EKG] | CPT/HCPCS: 93010 ==